=== PATIENT | female | born 1995 | race African-American/Black ===

== ENCOUNTER 2021-07-07 11:08 | Emergency (ER) | payer OTHER ==
[~2021-07-07] VITALS: Ht 172.7 cm; Wt 108.4 kg
[2021-07-07 11:23] VITALS: BP 144/82
--- NOTE | 2021-07-07 11:56 | NUR ---
Patient discharged to home in stable condition. Written and verbal after care instructions given. Patient verbalizes understanding of instruction.
== END 2021-07-07 11:56 | disposition home or self-care (01) ==
LOC: ER 11:14
DX: T18.8XXA Foreign body in other parts of alimentary tract, initial encounter (principal); J45.909 Unspecified asthma, uncomplicated; Z88.2 Allergy status to sulfonamides; X58.XXXA Exposure to other specified factors, initial encounter; Y93.89 Activity, other specified; Y92.89 Other specified places as the place of occurrence of the external cause; Y99.8 Other external cause status